=== PATIENT | male | born 1990 ===

== ENCOUNTER 2017-08-26 19:47 | Emergency (ER) | payer OTHER, BC ==
[2017-08-26 20:35] VITALS: BP 127/84; PULSE 80; RESP 20; TEMP 98.2; O2SAT 98
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
--- NOTE | 2017-08-27 08:49 | RAD ---
PROCEDURE: Cervical Spine Radiographs. HISTORY: Pain. COMPARISON: None. FINDINGS: BONES: Vertebral bodies are maintained in height. Normal alignment is maintained. Straightening of the normal lordotic curvature is evident, suggesting possible muscular spasm. Correlate clinically. The atlantoaxial articulation and odontoid process are intact. DISC SPACES: Mild narrowing of the C5-6 intervertebral disc space consistent with degenerative disc disease. The remaining intervertebral disc spaces are maintained in height. SOFT TISSUES: Normal. No prevertebral soft tissue swelling. OTHER FINDINGS: None. IMPRESSION: No fracture/ dislocation. Degenerative disc disease C5-6. Possible muscular spasm.
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
== END 2017-08-26 22:36 | disposition home or self-care (01) ==
LOC: C.ER 19:47
DX: S39.012A Strain of muscle, fascia and tendon of lower back, initial encounter (principal); V49.9XXA Car occupant (driver) (passenger) injured in unspecified traffic accident, initial encounter